=== PATIENT | female | born 1985 | race Caucasian/White ===

== ENCOUNTER 2019-11-26 21:12 | Emergency (ER) | payer OTHER, SELFPAY ==
[2019-11-26 21:17] VITALS: BP 143/81; PULSE 105; RESP 19; TEMP 37.3; O2SAT 100; BMI 21.9
--- NOTE | 2019-11-26 21:20 | DI.RAD.S_ITS ---
PROCEDURE: XR CHEST 1V INDICATIONS: chest pain TECHNIQUE: One view of the chest was acquired. COMPARISON: None. FINDINGS: Surgical changes and devices: None. Lungs and pleura: Lungs are clear. No pleural effusions or pneumothorax. Mediastinum: Mediastinal contours appear normal. Heart size is normal. Bones and chest wall: No suspicious bony lesions. Overlying soft tissues appear unremarkable. IMPRESSION: No acute cardiopulmonary abnormality. Dictated by: Gualberto Hackett M.D. on 11/26/2019 at 21:46 Approved by: Gualberto Hackett M.D. on 11/26/2019 at 21:46
[2019-11-26] MEDS: ONDANSETRON 4 MG/2 ML INJ IV (21:38)
[2019-11-26 21:40] LABS: Add Manual Diff / Slide Review NO; Basophils Absolute Auto 0 /uL (0-100); Basophils Percent Auto 0.5 % (0-2); Eosinophils Absolute Auto 100 /uL (0-450); Eosinophils Percent Auto 1.3 % (2-4); Hematocrit 41.9 % (36-46); Hemoglobin 14.4 g/dL (12.0-16.0); Lymphocytes Absolute Auto 2000 /uL (1100-4500); Lymphocytes Percent Auto 21.8 % (25-40); Mean Corpuscular HGB Conc 34.5 % (30-36); Mean Corpuscular Hemoglobin 31.7 PG (26-34); Monocytes Absolute Auto 800 /uL (0-900); Monocytes Percent Auto 8.6 % (3-14); Neutrophils Absolute Auto 6300 /uL (1500-7000); Neutrophils Percent Auto 67.8 % (50-75); Platelet Count 207 X10^3/uL (150-400); Red Blood Cell Count 4.56 X10^6/uL (4.0-5.2); Red Cell Distribution Width 12.5 % (11.6-14.8); White Blood Cell Count 9.4 X10^3/uL (4.5-11.0)
[2019-11-26 21:44] LABS: Prothrombin Time 11.5 SECONDS (10.1-12.7)
[2019-11-26 21:47] LABS: PTT Partial Thromboplastin Tim 30 SECONDS (26.4-36.2)
[2019-11-26 21:48] LABS: Alanine Aminotransferase 13 IU/L (<35); Albumin 4.5 g/dL (3.5-5.0); Albumin Globulin Ratio 1.7 (1.0-2.8); Alkaline Phosphatase 32 U/L (38-126); Aspartate Aminotransferase 28 IU/L (14-36); BUN Creatinine Ratio 12.5 (6-22); Bilirubin Total 0.4 mg/dL (0.2-1.3); Blood Urea Nitrogen 10 mg/dL (7-17); Calcium 9.1 mg/dL (8.4-10.2); Carbon Dioxide 24 mmol/L (22-32); Chloride 105 mmol/L (98-107); Creatine Kinase 78 U/L (30-135); Estimated Glomerular Filt Rate > 60.0 mL/min (>60); Globulin 2.7 g/dL (1.7-4.1); Glucose 106 mg/dL (70-100); HEMOLYSIS 49 (0-50); Lipase 123 U/L (23-300); Potassium 3.4 mmol/L (3.4-5.1); Sodium 138 mmol/L (137-145); Total Protein 7.2 g/dL (6.3-8.2)
[2019-11-26 22:00] LABS: Troponin I < 0.012 ng/mL (0.01-0.034)
[2019-11-26 22:05] VITALS: BP 135/96; PULSE 79; RESP 11; O2SAT 97
[2019-11-26 22:14] VITALS: BP 135/96; PULSE 79; RESP 18; O2SAT 98
--- NOTE | 2019-11-26 22:16 | ED_ITS ---
HPI - Chest Pain General Chief Complaint: Chest Pain Stated Complaint: chest pain Time Seen by Provider: 11/26/19 22:03 Source: patient Mode of arrival: Ambulatory Limitations: no limitations History of Present Illness HPI narrative: 34-year-old female here for evaluation of palpitations associated with chest tightness and shortness of breath and some lightheadedness. She had similar symptoms earlier this week. Went to an outside emergency department. I was able to review those notes. She was diagnosed with palpitations. No interventions except for lab work in EKG performed at that time. She says prior to earlier this week she potentially has had palpitations but they were only very short lived and not associated with any other symptoms. She never been evaluated for these before. Her symptoms today were very similar to earlier this week. She states that was a fairly sudden onset. Unsure exactly how long it lasted but approximately 15-45 minutes. Resolved on its own. She states that it did resolve fairly quickly. All of the other symptoms that she had associated with the palpitations resolved as well. She stated that she had a heart rate monitor on at the time and the heart rate was in the 140s to 160s. She states that the symptoms earlier this week and today have been the longest l asting and most uncomfortable that she has ever had. She was told during her last visit that she needed to see her primary doctor about a Holter monitor. She denies any alcohol use. No smoking. No drugs. No change any medications. No family history of early cardiac . She had a father who had a heart attack in his late 30s. No family history of drowning. The time my evaluation patient was asymptomatic. Related Data Allergies Allergy/AdvReac Type Severity Reaction Status Date / Time No Known Drug Allergies Allergy Verified 11/26/19 21:31 Review of Systems Constitutional Constitutional: Denies fever(s) and Denies headache(s) ENT Ears, Nose, Mouth, and Throat: Denies headache(s) Cardiovascular Cardiovascular: Reports chest pain, Denies syncope, Reports rapid heart rate, Reports lightheadedness, Denies radiating jaw, neck or arm pain, Reports palpitations and Reports dyspnea Respiratory Respiratory: Denies cough, Reports dyspnea and Denies wheezing Gastrointestinal Gastrointestinal: Denies abdominal pain, Denies nausea and Denies vomiting Genitourinary Genitourinary: Denies dysuria and Denies vaginal discharge Musculoskeletal Musculoskeletal: Denies myalgias and Denies arthralgias Integumentary/Breasts Skin/Breast: Denies lesions and Denies rash Neurologic Neurologic: Denies behavioral changes, Denies syncope and Denies headache(s) Psychiatric Psychiatric: Denies behavioral changes Endocrine Endocrine: Reports palpitations Hematologic/Lymphatic Hematologic/Lymphatic: Denies easy bleeding and Denies easy bruising Allergic/Immunologic Allergic/Immunologic: Denies urticaria and Denies wheezing Patient History Medical History Healthy adult (Acute) Social History Smoking Status: Never smoker Smoking Status: Never smoker alcohol intake frequency: a few times a month Substance Use Type: does not use Exam Initial Vital Signs Initial Vital Signs: Vital Signs Temperature 99.2 F 11/26/19 21:17 Pulse Rate 105 H 11/26/19 21:17 Respiratory Rate 19 11/26/19 21:17 Blood Pressure 143/81 H 11/26/19 21:17 Pulse Oximetry 100 11/26/19 21:17 Const General: cooperative, comfortable and well developed Orientation: alert, awake and oriented x3 HENMT Head: normal to inspection and normocephalic Resp Effort & Inspection: normal respiratory effort Auscultation: clear to auscultation bilaterally Cardio Rate: regular rate Rhythm: regular rhythm Pulses: radial pulses present Skin Lesions: no lesions Rashes: no rashes Neuro General: alert, awake and oriented x3 Cognition: normal cognition Speech: speech normal Gait: normal gait Extrem General: normal to inspection and capillary refill normal Psych Appearance: grossly normal and well kempt Scores GCS Thuan coma scale eye opening: Spontaneous Thuan coma scale verbal response: Orientated [place] coma scale motor response: Obey commands Thuan coma scale total score: 15 HEART Score Heart Score history: Slightly Suspicious Heart Score EKG: Non-Specific repolarization disturbance Heart Score Age: < 45 years old Heart Score risk factors: 1-2 risk factors Heart Score troponin: < or = to normal limit Heart Score Total: 2 Course Orders Ordered: ED Orders 11/26/19 21:19 EKG-12 Lead Stat 11/26/19 21:20 XR chest 1V Stat 11/26/19 21:30 Complete Blood Count AUTO DIFF Stat Comprehensive Metabolic Panel Stat Lipase Stat Partial Thromboplastin Time Stat Prothrombin Time INR Stat Troponin & CK Cardiac Panel Stat Discontinued Medications Ondansetron HCl (Zofran) 4 mg IV NOW ONE Stop: 11/26/19 21:33 Last Admin: 11/26/19 21:38 Dose: 4 mg Documented by: COSTA Vital Signs Vital signs: Vital Signs - 8 hr 11/26/19 21:17 11/26/19 22:05 11/26/19 22:14 Temperature 99.2 F Pulse Rate 105 H 79 79 Respiratory Rate 19 11 L 18 Blood Pressure 143/81 H Blood Pressure [Left Arm] 135/96 H Blood Pressure [Right Arm] 135/96 H Pulse Oximetry 100 97 98 11/26/19 22:49 Temperature Pulse Rate 73 Respiratory Rate 15 Blood Pressure 120/69 Blood Pressure [Left Arm] Blood Pressure [Right Arm] Pulse Oximetry 96 MDM - Chest Pain Medical Records Data Attestation: I reviewed the patient's medical records. Lab Data Attestation: I reviewed the patient's lab results. Result diagrams: 11/26/19 21:30 11/26/19 21:30 Labs: Lab Results 11/26/19 11/26/19 11/26/19 Range/Units 21:30 21:30 21:30 WBC 9.4 (4.5-11.0) X10^3/uL RBC 4.56 (4.0-5.2) X10^6/uL Hgb 14.4 (12.0-16.0) g/dL Hct 41.9 (36-46) % MCV 92.0 (80-100) fL MCH 31.7 (26-34) PG MCHC 34.5 (30-36) % RDW 12.5 (11.6-14.8) % Plt Count 207 (150-400) X10^3/uL Neut % (Auto) 67.8 (50-75) % Lymph % (Auto) 21.8 L (25-40) % [place] % (Auto) 8.6 (3-14) % Eos % (Auto) 1.3 L (2-4) % Baso % (Auto) 0.5 (0-2) % Neut # (Auto) 6300 (3269-9850) /uL Lymph # (Auto) 2000 (3400-5207) /uL [place] # (Auto) 800 (0-900) /uL Eos # (Auto) 100 (0-450) /uL Baso # (Auto) 0 (0-100) /uL PT 11.5 (10.1-12.7) SECONDS INR 1.0 (0.9-1.3) APTT 30 (26.4-36.2) SECONDS Sodium 138 (137-145) mmol/L Potassium 3.4 (3.4-5.1) mmol/L Chloride 105 (98-107) mmol/L Carbon Dioxide 24 (22-32) mmol/L BUN 10 (7-17) mg/dL Creatinine 0.80 (0.52-1.04) mg/dL Estimated GFR > 60.0 (>60) mL/min BUN/Creatinine Ratio 12.5 (6-22) Glucose 106 H (70-100) mg/dL Calcium 9.1 (8.4-10.2) mg/dL Total Bilirubin 0.4 (0.2-1.3) mg/dL AST 28 (14-36) IU/L ALT 13 (<35) IU/L Alkaline Phosphatase 32 L (38-126) U/L Total Creatine Kinase 78 (30-135) U/L CK-MB (CK-2) TNP CK-MB (CK-2) Rel Index TNP Troponin I < 0.012 (0.01-0.034) ng/mL Total Protein 7.2 (6.3-8.2) g/dL Albumin 4.5 (3.5-5.0) g/dL Globulin 2.7 (1.7-4.1) g/dL Albumin/Globulin Ratio 1.7 (1.0-2.8) Lipase 123 (23-300) U/L Urine Dip Bedside Urine Glucose Negative Bedside Urine Bilirubin - Negative Bedside Urine Ketone - Negative Urine Specific [employer] [place] 1.010 Bedside Urine Occult Blood - Negative Bedside Urine pH 6.5 Bedside Urine Protein - Negative Bedside Urine Urobilinogen - Negative Bedside Urine Nitrite - Negative Bedside Urine Leukocytes - Negative Esterase Imaging Data Chest x-ray: Radiologist's Impression: [address] [address] XRay Report Signed Patient: Danika Shabazz RMR#: [id number] : 1985Acct:[id number] Age/Sex: 34 / FDate of Service: 11/26/19 Loc: ED Accession Number: [id number] Procedure: XR chest 1V Ordering Provider: Markus Cortez D.O. PROCEDURE: XR CHEST 1V INDICATIONS: chest pain TECHNIQUE: One view of the chest was acquired. COMPARISON: None. FINDINGS: Surgical changes and devices: None. Lungs and pleura: Lungs are clear. No pleural effusions or pneumothorax. Mediastinum: Mediastinal contours appear normal. Heart size is normal. Bones and chest wall: No suspicious bony lesions. Overlying soft tissues appear unremarkable. IMPRESSION: No acute cardiopulmonary abnormality. Dictated by: Gualberto Hackett M.D. on 11/26/2019 at 21:46 Approved by: Gualberto Hackett M.D. on 11/26/2019 at 21:46 ECG Data Attestation: I personally reviewed and interpreted this ECG as follows: Prior ECG tracings: not available for review Interpretation: Sinus tachycardia Ventricular rate of 100 Normal axis QRS 90 milliseconds QTC [address] T wave changes MDM Narrative Medical decision making narrative: Patient was asymptomatic upon my arrival. Heart rate of 100 on the EKG with a normal QTC and normal QRS complex. At the time of evaluation her heart rate on the monitor was in the 80s. She is a low risk heart score. No fevers. Chest x-ray is unremarkable. Labs are u nremarkable. Had a long discussion with the patient and her regarding her symptoms. I've low suspicion for ACS. I'm more suspicious for an atrial arrhythmia. I did discuss with her that her electrolytes are unremarkable. We did discuss the importance of a Holter monitor to evaluate for both rate and rhythm in order to make appropriate medication recommendations. We discussed return precautions. We will hold on further workup for now. Patient expressed understanding and agreement plan. Discharge Plan Departure Patient Disposition: Home Clinical Impression: Heart palpitations Discharge Date/Time: 11/26/19 22:50 Instructions: DI for Palpitations Activity Restrictions/Additional Instructions: I do recommend you contact your primary provider to discuss the indications for a Holter monitor. Return to the emergency department for any new or worsening symptoms like we discussed. Referrals: Catalina Isaacs FNP-BC [Primary Care Provider] -
[2019-11-26 22:49] VITALS: BP 120/69; PULSE 73; RESP 15; O2SAT 96
== END 2019-11-26 22:50 | disposition home or self-care (01) ==
PROVIDERS: Emergency Provider Emergency Medicine; Family Provider Nurse Practitioner Family; PCP Nurse Practitioner Family
DX: R00.2 Palpitations (principal); R07.9 Chest pain, unspecified; R00.0 Tachycardia, unspecified; R06.02 Shortness of breath; R42 Dizziness and giddiness
CPT/HCPCS: 36415; 71045; 80053; 81003; 82550; 83690; 84484; 85025; 85610; 85730; 93005; 96374; 99284; 99285; J2405